=== PATIENT | female | born 1995 | race Caucasian/White ===

== ENCOUNTER 2018-10-24 03:52 | Emergency (ER) | payer BC ==
--- NOTE | 2018-10-24 04:12 | EDM.PDOC ---
<Rowan Trent - Last Filed: 10/24/18 04:47> ED HPI GENERAL MEDICAL PROBLEM - General Stated Complaint: PASSED OUT ON THE FLOOR Time Seen by Provider: 10/24/18 04:05 - History of Present Illness INITIAL COMMENTS - FREE TEXT/NARRATIVE: HISTORY AND PHYSICAL: History of present illness: Patient is a 23-year-old female with a long-standing history of neurocardiogenic syncope, a diagnoses she's had for at least 5-6 years, and presents with a syncopal event that occurred just prior to arrival when she was sitting on the toilet urinating. The patient says she also has hypothyroidism and takes medication for that and she said that she had a pretty normal day yesterday without fever chills cough vomiting or diarrhea but she did have some "flip flopping" of her heart yesterday morning. She says this happens to her at least once a week for a long time and is not new or different. She says it does stress her when it occurs but there is no pain with it and she does not pass out with that nor is she short of breath nausea or vomiting. The patient says it was typical of her prior episodes and lasted approximately the same duration and she went on with the rest of her day without issue. Yazan she got up to go to the bathroom and was urinating when she had a syncopal event. She says she fell off the toilet and may have struck her head but she doesn't recall. She said she woke up on the floor and her boyfriend was sleeping and did not wake up. She did not want to come in for evaluation but her boyfriend made her and she has been crying because of that. She says that she has had a major workup in the past including echocardiogram still tests to make her diagnosis and she does not miss early feel that she wants a full workup for tonight's events. She is unsure because her boyfriend was so nervous about tonight's events. She currently has no complaints of any pain and as a result of falling off the toilet she has no back pain chest pain or extremity complaints from trauma. She is not lightheaded or dizzy currently in the ED and she is not short of breath or having chest pain or any palpitations. The patient did tell nursing that she did have about 5 beers last evening which is not a regular thing for her. Review of systems: As per history of present illness and below otherwise all systems reviewed and negative. Past medical history: As per history of present illness and as reviewed below otherwise noncontributory. Surgical history: As per history of present illness and as reviewed below otherwise noncontributory. Social history: No reported history of drug or alcohol abuse. Family history: As per history of present illness and as reviewed below otherwise noncontributory. Physical exam: General: Well-developed well-nourished mildly overweight female who is nontoxic and speaking clearly and easily in the ED. Vital signs are noted by me HEENT: Atraumatic, normocephalic, pupils reactive, negative for conjunctival pallor or scleral icterus, mucous membranes moist, throat clear, neck supple, nontender, trachea midline. I do not appreciate any scalp defects or deformities and there are no lacerations appreciated and there is no evidence of any facial injury such as soft tissue swelling defects or deformities. Teeth and bite are intact. Sclerae are slightly injected and the patient says she has been crying. There are no midline step-offs tenderness defects of the cervical spine Lungs: Clear to auscultation, breath sounds equal bilaterally, chest nontender. Heart: S1S2, regular rate and rhythm no overt murmurs Abdomen: Soft, nondistended, nontender. Negative for masses or hepatosplenomegaly. Negative for costovertebral tenderness. Pelvis: Stable nontender. Genitourinary: Deferred. Rectal: Deferred. Extremities: Atraumatic, negative for cords or calf pain. Neurovascular unremarkable. Full range of motion of all extremities without defects deficits or deformities and there is no evidence of any soft tissue swelling or bruising seen Neuro: Awake, alert, oriented. Cranial nerves II through XII unremarkable. Cerebellum unremarkable. Motor and sensory unremarkable throughout. Exam nonfocal. Back: There are no midline step-offs tenderness defects of the thoracic or lumbar spine no posterior rib or posterior pelvis tenderness and no soft tissue injury such as ecchymosis or tissue swelling erythema or abrasions. Diagnostics: EKG CBC CMP UA troponin TSH chest x-ray orthostatic vitals I recommended a CT scan of the head but the patient is declining that at this time Therapeutics: Pulse ox monitor IV IV fluids 445: Case endorsed to Dr. Irwin to follow-up the remainder of the labs and disposition the patient Impression: Syncopal event with history of neurocardiogenic syncope Definitive disposition and diagnosis as appropriate pending reevaluation and review of above. - Related Data Allergies Allergy/AdvReac Type Severity Reaction Status Date / Time codeine Allergy Rash Verified 10/24/18 04:28 Home Meds: Home Meds Levothyroxine 175 mcg PO DAILY 05/06/15 [History] Past Medical History Other Cardiovascular History: neurocardiogenic syncope Gastrointestinal History: Reports: None Endocrine/Metabolic History: Reports: Other (See Below) Other Endocrine/Metabolic History: thyroid problem - Past Surgical History HEENT Surgical History: Reports: Tonsillectomy ED ROS GENERAL - Review of Systems Review Of Systems: ROS reveals no pertinent complaints other than HPI. ED EXAM, GENERAL - Physical Exam Exam: See Below (See dictation) Course - Vital Signs Last Recorded V/S: Last Vital Signs Temp 97.1 F 10/24/18 03:52 Pulse 77 10/24/18 03:52 Resp 18 10/24/18 03:52 BP 127/85 10/24/18 03:52 Pulse Ox 96 10/24/18 03:52 Orthostatic Blood Pressure [ 112/67 Standing] Orthostatic Blood Pressure [ 113/77 Sitting] Orthostatic Blood Pressure [ 116/74 Supine] - Orders/Labs/Meds Orders: Active Orders 24 hr Category Date Time Status Cardiac Monitoring [RC] . DIRECTED Care 10/24/18 04:06 Active EKG Documentation Completion [RC] STAT Care 10/24/18 04:06 Active Orthostatic Vital Signs [RC] ASDIRECTED Care 10/24/18 04:19 Active Oxygen Therapy, ED [RC] ASDIRECTED Care 10/24/18 04:06 Active Pulse Oximetry [RC] ASDIRECTED Care 10/24/18 04:06 Active Chest 1V Frontal [CR] Stat Exams 10/24/18 04:19 Ordered Sodium Chloride 0.9% [Saline Flush] Med 10/24/18 04:19 Active 10 ml FLUSH ASDIRECTED PRN Sodium Chloride 0.9% [Saline Flush] Med 10/24/18 04:19 Active 2.5 ml FLUSH ASDIRECTED PRN Saline Lock Insert [OM.PC] Stat Oth 10/24/18 04:18 Ordered Medication Orders Sodium Chloride (Saline Flush) 10 ml FLUSH ASDIRECTED PRN PRN Reason: Keep Vein Open Sodium Chloride (Saline Flush) 2.5 ml FLUSH ASDIRECTED PRN PRN Reason: Keep Vein Open Labs: Laboratory Tests 10/24/18 10/24/18 10/24/18 Range/Units 04:20 04:20 04:25 WBC 7.71 (4.0-11.0) K/uL RBC 4.77 (4.30-5.90) M/uL Hgb 13.9 (12.0-16.0) g/dL Hct 41.7 (36.0-46.0) % MCV 87.4 (80.0-98.0) fL MCH 29.1 (27.0-32.0) pg MCHC 33.3 (31.0-37.0) g/dL RDW Std Deviation 44.6 (28.0-62.0) fl RDW Coeff of Mary 14 (11.0-15.0) % Plt Count 310 (150-400) K/uL MPV 10.30 (7.40-12.00) fL Neut % (Auto) 52.0 (48.0-80.0) % Lymph % (Auto) 39.8 (16.0-40.0) % [place] % (Auto) 5.7 (0.0-15.0) % Eos % (Auto) 2.2 (0.0-7.0) % Baso % (Auto) 0.3 (0.0-1.5) % Neut # (Auto) 4.0 (1.4-5.7) K/uL Lymph # (Auto) 3.1 H (0.6-2.4) K/uL [place] # (Auto) 0.4 (0.0-0.8) K/uL Eos # (Auto) 0.2 (0.0-0.7) K/uL Baso # (Auto) 0.0 (0.0-0.1) K/uL Nucleated RBC % 0.0 /100WBC Nucleated RBCs # 0 K/uL Sodium 144 (136-145) mmol/L Potassium 3.5 (3.5-5.1) mmol/L Chloride 106 (98-107) mmol/L Carbon Dioxide 26.7 (21.0-32.0) mmol/L BUN 9 (7.0-18.0) mg/dL Creatinine 0.9 (0.6-1.0) mg/dL Est Cr Clr Drug Dosing 81.79 mL/min Estimated GFR (MDRD) > 60.0 ml/min Glucose 82 (74-106) mg/dL Calcium 8.8 (8.5-10.1) mg/dL Total Bilirubin 0.2 (0.2-1.0) mg/dL AST 16 (15-37) IU/L ALT 24 (14-63) IU/L Alkaline Phosphatase 76 (46-116) U/L Troponin I < 0.050 (0.000-0.056) ng/mL Total Protein 8.0 (6.4-8.2) g/dL Albumin 4.2 (3.4-5.0) g/dL Globulin 3.8 (2.6-4.0) g/dL Albumin/Globulin Ratio 1.1 (0.9-1.6) TSH 3rd Generation 4.94 H (0.36-3.74) uIU/mL Urine Color YELLOW Urine Appearance CLEAR Urine pH 6.0 (5.0-8.0) Ur Specific [place] 1.010 (1.001-1.035) Urine Protein NEGATIVE (NEGATIVE) mg/dL Urine Glucose (UA) NEGATIVE (NEGATIVE) mg/dL Urine Ketones NEGATIVE (NEGATIVE) mg/dL Urine Occult Blood NEGATIVE (NEGATIVE) Urine Nitrite NEGATIVE (NEGATIVE) Urine Bilirubin NEGATIVE (NEGATIVE) Urine Urobilinogen 0.2 (<2.0) EU/dL Ur Leukocyte Esterase NEGATIVE (NEGATIVE) Meds: Medications Generic Name Dose Route Start Last Admin Trade Name Freq PRN Reason Stop Dose Admin Sodium Chloride 10 ml 10/24/18 04:19 Saline Flush FLUSH ASDIRECTED PRN Keep Vein Open Sodium Chloride 2.5 ml 10/24/18 04:19 Saline Flush FLUSH ASDIRECTED PRN Keep Vein Open Discontinued Medications Generic Name Dose Route Start Last Admin Trade Name Freq PRN Reason Stop Dose Admin Sodium Chloride 1,000 mls @ 999 mls/hr 10/24/18 04:19 10/24/18 04:42 Normal Saline IV 10/24/18 05:19 999 mls/hr STAT ONE Administration Departure - Departure Disposition: Home, Self-Care 01 Clinical Impression: Syncope Qualifiers: Syncope type: unspecified Qualified Code(s): R55 - Syncope and collapse - Discharge Information Referrals: PCP,None [Primary Care Provider] - Additional Instructions: The following information is given to patients seen in the emergency department who are being discharged to home. This information is to outline your options for follow-up care. We provide all patients seen in our emergency department with a follow-up referral. The need for follow-up, as well as the timing and circumstances, are variable depending upon the specifics of your emergency department visit. If you don't have a primary care physician on staff, we will provide you with a referral. We always advise you to contact your personal physician following an emergency department visit to inform them of the circumstance of the visit and for follow-up with them and/or the need for any referrals to a consulting specialist. The emergency department will also refer you to a specialist when appropriate. This referral assures that you have the opportunity for follow-up care with a specialist. All of these measure are taken in an effort to provide you with optimal care, which includes your follow-up. Under all circumstances we always encourage you to contact your private physician who remains a resource for coordinating your care. When calling for follow-up care, please make the office aware that this follow-up is from your recent emergency room visit. If for any reason you are refused follow-up, please contact the [facility] Emergency Department at and asked to speak to the emergency department charge nurse. [facility] [address] [place] [phone] <Devika Irwin - Last Filed: 10/24/18 05:28> ED HPI GENERAL MEDICAL PROBLEM - History of Present Illness INITIAL COMMENTS - FREE TEXT/NARRATIVE: She was signed out to me to check labs and to disposition the patient. Patient has an elevated TSH x-rays are negative to follow-up with primary care for further workup. Departure - Departure Time of Disposition: 05:27 Condition: Good
[2018-10-24] MEDS ORDERED: Sodium Chloride 0.9% 1,000 ML IV ONE (04:19)
[2018-10-24] MEDS ORDERED: Sodium Chloride 0.9% 10 ML Syringe FLUSH PRN (04:19)
[2018-10-24] MEDS ORDERED: Sodium Chloride 0.9% 2.5 ML Syringe FLUSH PRN (04:19)
[2018-10-24 04:28] VITALS: BP 127/85
[2018-10-24 05:00] LABS: CHLORIDE,CL 106 mmol/L (98-107); SODIUM,NA 144 mmol/L (136-145)
--- NOTE | 2018-10-24 20:44 | CR ---
EXAM DATE: 10/24/18 PATIENT'S AGE: 23 Patient: SUMMER ALLEN Facility: [place], [place] Site . Site : 1995 Study: XRay Chest -10/24/2018 4:34:38 AM Ordering Physician: Miley Donahue Final Report: INDICATION: Shortness of breath TECHNIQUE: Chest radiograph 1 view COMPARISON: None FINDINGS: Mediastinum: The mediastinum is normal in appearance. The heart silhouette is normal in size and morphology. Lung: Both lungs are unremarkable in appearance with small lung volumes. No sign of pleural effusion seen. No pneumothorax is identified. Musculoskeletal: Unremarkable for age. IMPRESSION: 1. No acute cardiopulmonary disease is seen. Dictated by: John Garcia MD @ 10/24/2018 04:36:39 (Electronic Signature) Report Signed by Proxy. [facility]ALSrik[facility]
== END 2018-10-24 05:34 | disposition home or self-care (01) ==
LOC: MW.ED 03:52
DX: R55 Syncope and collapse (principal); E03.9 Hypothyroidism, unspecified; Z79.899 Other long term (current) drug therapy; Z88.5 Allergy status to narcotic agent; Z90.89 Acquired absence of other organs
CPT/HCPCS: 36415; 71045; 80053; 81003; 84443; 84484; 85025; 93005; 96360; 99284; J7040